=== PATIENT | female | born 1960 | race Caucasian/White ===

== ENCOUNTER 2016-09-01 05:31 | Day surgery (SDC) | payer OTHER ==
[2016-09-01] MEDS ORDERED: ceFAZolin 2 GM/DEXTROSE 100 ML IV ONE (05:59)
[2016-09-01] MEDS ORDERED: LIDOCAINE 1% 2 ML INJ ONE (06:08)
[2016-09-01] MEDS ORDERED: LIDOCAINE 1% 2 ML INJ ID PRN (06:22)
[2016-09-01] MEDS ORDERED: LR 1,000 ML IV ONE (06:22)
[2016-09-01] MEDS ORDERED: BUPIVACAINE 0.5% 30 ML SDV ONE (06:46)
--- NOTE | 2016-09-01 06:59 | PDHPUP ---
History & Physical Update H&P update statement: This history and physical update is based on an assessment of the patient which was completed after admission or registration (within 24 hours), but prior to the surgery/procedure. H&P update: H&P reviewed & patient examined, no change in patient's condition since H&P completed
[2016-09-01] MEDS ORDERED: MIDAZOLAM 2 MG/2 ML VIAL ONE (07:06)
[2016-09-01] MEDS ORDERED: MIDAZOLAM 2 MG/2 ML VIAL IVP ONE (07:07)
[2016-09-01] MEDS ORDERED: DEXAMETHASONE 4 MG/ML VIAL ONE (07:14)
[2016-09-01] MEDS ORDERED: fentaNYL 100 MCG/2 ML INJ ONE (07:15)
[2016-09-01] MEDS ORDERED: PROPOFOL 200 MG/20 ML VIAL ONE (07:15)
[2016-09-01] MEDS ORDERED: ONDANSETRON 4 MG/2 ML VIAL ONE (07:15)
[2016-09-01] MEDS ORDERED: LIDOCAINE 2% 5 ML SDV ONE (07:15)
[2016-09-01] MEDS ORDERED: KETOROLAC 30 MG/1 ML SDV ONE (07:15)
--- NOTE | 2016-09-01 07:29 | PDANEPAE ---
ANE History of Present Illness umbilical hernia ANE Past Medical History - Cardiovascular History Hx Hypertension: No Hx Arrhythmias: No Hx Chest Pain: No Hx Coronary Artery / Peripheral Vascular Disease: No Hx CHF / Valvular Disease: No Hx Palpitations: No - Pulmonary History Hx COPD: No Hx Asthma/Reactive Airway Disease: No Hx Recent Upper Respiratory Infection: No Hx Oxygen in Use at Home: No Hx Sleep Apnea: No Sleep Apnea Screening Result - Last Documented: Negative - Neurologic History Hx Cerebrovascular Accident: No Hx Seizures: No Hx Dementia: No - Endocrine History Hx Diabetes: No - Renal History Hx Renal Disorders: No - Liver History Hx Hepatic Disorders: No - Neurological & Psychiatric Hx Hx Neurological and Psychiatric Disorders: No - Cancer History Hx Cancer: No - Congenital Disorder History Hx Congenital Disorders: No - GI History Hx Gastrointestinal Disorders: No - Other Health History Other Health History: NEG - Chronic Pain History Chronic Pain: No - Surgical History Prior Surgeries: APPENDECTOMY. KNEE R SURG ANE Review of Systems - Exercise capacity METS (RN): 4 METS ANE Patient History - Allergies Allergies/Adverse Reactions: No Known Drug Allergies Allergy (Verified 08/29/16 13:52) - Home Medications Home Medications: Gabapentin 08/30/16 [Last Taken 08/31/16 21:00 100mg] - NPO status NPO Since - Liquids (Date): 08/31/16 NPO Since - Liquids (Time): 23:00 NPO Since - Solids (Date): 08/31/16 NPO Since - Solids (Time): 20:30 - Anes Hx Anes Hx: no prior problems - Smoking Hx Smoking Status: Light smoker - Family Anes Hx Family Hx Anesthesia Complications: NEG ANE Labs/Vital Signs - Vital Signs Blood Pressure: 140/69 Heart Rate: 46 Respiratory Rate: 18 O2 Sat (%): 98 Height: 177.8 cm Weight: 58.06 kg ANE Physical Exam - Airway Mallampati Score: Class 2 Mouth exam: normal dental/mouth exam - Pulmonary Pulmonary: no respiratory distress - Cardiovascular Cardiovascular: regular rate and rhythym - ASA Status ASA Status: II ANE Anesthesia Plan Anesthesia Plan: GA w LMA
[2016-09-01] MEDS ORDERED: HYDROmorphONE/DILAUDID 1 MG/ML SYR IVP PRN (07:40)
[2016-09-01] MEDS ORDERED: fentaNYL 100 MCG/2 ML INJ IVP PRN (07:40)
[2016-09-01] MEDS ORDERED: LR 500 ML IV PRN (07:40)
[2016-09-01] MEDS ORDERED: ONDANSETRON 4 MG/2 ML VIAL IVP PRN (07:40)
[2016-09-01] MEDS ORDERED: MEPERIDINE 25 MG/ML SYR IVP PRN (07:40)
[2016-09-01] MEDS ORDERED: NALOXONE HCL 0.4 MG/ML INJ IVP PRN (07:40)
--- NOTE | 2016-09-01 07:57 | POSTANESTH ---
Post Anesthetic Evaluation Cardiovascular Status: Normal, Stable Respiratory Status: Normal, Stable Level of Consciousness/Mental Status: Can Participate in Eval Pain Control: Adequate, Prn Tx Ordered Nausea/Vomiting Control: Adequate, Prn Tx Ordered Complications Possibly Related to Anesthesia: None Noted
--- NOTE | 2016-09-01 08:02 | POSTOPPROG ---
Post Op Note Date of Operation: 09/01/16 Surgeon: Kamran Bautista Community Service Representative: maritza Anesthesiologist: phil Anesthesia: GET(General Endotracheal) Pre-op Diagnosis: umb hernia Post-op Diagnosis: same Indication: pain Procedure: umb hernia repair Findings: < 1 cm umb defect Inf/Abcess present in the surg proc area at time of surgery?: No Depth: Organ Space EBL: Minimal Complications: 0 Specimen(s): umb hernia sac
[2016-09-01 08:22] VITALS: RESP 14
[2016-09-01 08:42] VITALS: BP 139/72; PULSE 55; TEMP 97.7; O2SAT 97
--- NOTE | 2016-09-01 18:01 | GOP ---
[f rep st] OPERATIVE REPORT DATE OF OPERATION: 09/01/2016 SURGEON: Kamran Bautista MD PSYCHOTHERAPIST SOCIAL WORKER: JUVE Lang ANESTHESIOLOGIST: Johan Magana MD PREOPERATIVE DIAGNOSIS: Symptomatic umbilical hernia. POSTOPERATIVE DIAGNOSIS: Symptomatic umbilical hernia. PROCEDURE PERFORMED: Umbilical hernia repair. FINDINGS: The patient was found to have a less than 1 cm umbilical hernia defect with incarcerated preperitoneal fat which was infarcted. ESTIMATED BLOOD LOSS: Negligible. DESCRIPTION OF PROCEDURE: The patient was taken to the operating room where she received satisfacto ry general endotracheal anesthesia by Dr. Magana. She was placed in the supine position and prepped and draped in the usual sterile fashion. A circumferential umbilical incision was made, and dissec tion was carried down through subcutaneous tissue. The umbilical hernia sac was dissected free from surrounding subcutaneous tissue. Sac was opened at the fascial edge and was seen to contain some i nfarcted fatty tissue. This was amputated with electrocautery. Hemostasis was assured. The fascia l edges were freshened up, and the defect was closed in 2 layer fashion with [id number]-type ma ttress sutures. The wound was infiltrated with % Marcaine. Subcu was closed with 3-0 Vi cryl, and the skin with a 4-0 Monocryl subcuticular stitch. COMPLICATIONS: None. DISPOSITION: Taken to the recovery room in good condition. /[id number]/MODL
== END 2016-09-01 09:02 | disposition home or self-care (01) ==
LOC: FSGY 05:31
PROVIDERS: ATTEND Surgery
PROC: 0WUF0JZ Supplement Abdominal Wall with Synthetic Substitute, Open Approach (ICD-10-PCS; principal; 2016-09-01 07:15)
DX: K42.0 Umbilical hernia with obstruction, without gangrene (principal)
CPT/HCPCS: J0690; J1100; J1885; J2250; J2405; J2704; J3010